=== PATIENT | female | born 1995 | race Caucasian/White ===

== ENCOUNTER 2022-03-01 10:25 | Emergency (ER) | payer OTHER ==
[~2022-03-01] VITALS: Ht 170.2 cm; Wt 70.0 kg
[2022-03-01 12:37] LABS: COVID AG,FIA SOURCE NASOPHARYNGEAL
[2022-03-01 13:23] LABS: INFLUENZA TYPE A NEGATIVE FOR TYPE A (NEGATIVE); INFLUENZA TYPE B NEGATIVE FOR TYPE B (NEGATIVE)
[2022-03-01] MEDS ORDERED: BENZ-70 PO (13:49)
[2022-03-01 13:55] VITALS: BP 126/72
== END 2022-03-01 14:10 | disposition home or self-care (01) ==
LOC: EMS 10:30
DX: J06.9 Acute upper respiratory infection, unspecified (principal); Z20.822 Contact with and (suspected) exposure to COVID-19
CPT/HCPCS: 71045; 87804; 99284

== ENCOUNTER 2022-07-13 16:40 | Emergency (ER) | payer OTHER ==
[~2022-07-13] VITALS: Ht 167.6 cm; Wt 63.6 kg
[~2022-07-13 16:40] MED LIST: BENZ-227 PO
[2022-07-13 17:07] LABS: COVID AG,FIA SOURCE NASOPHARYNGEAL
[2022-07-13] MEDS ORDERED: ACETAMINOPHEN 500 MG TABLET PO ONE (17:30)
[2022-07-13 17:31] LABS: INFLUENZA TYPE A NEGATIVE FOR TYPE A (NEGATIVE); INFLUENZA TYPE B NEGATIVE FOR TYPE B (NEGATIVE)
[2022-07-13] MEDS ORDERED: ACET-3385 PO (19:20)
[2022-07-13 19:47] VITALS: BP 124/72
== END 2022-07-13 20:05 | disposition home or self-care (01) ==
LOC: EMS 16:45
DX: J06.9 Acute upper respiratory infection, unspecified (principal); Z20.822 Contact with and (suspected) exposure to COVID-19
CPT/HCPCS: 87804; 99283